=== PATIENT | female | born 1990 | race Caucasian/White ===

== ENCOUNTER 2017-04-19 09:13 | Emergency (ER) | payer MEDICAID ==
--- NOTE | 2017-04-19 09:56 | UC ---
Lower Extremity/Ankle HPI - HPI Summary HPI Summary: Left knee lateral lump/swelling for the past two months which is getting larger. It hurts more to use the knee like after a day of long walking. No prior injury or surgery. - History of Current Complaint Stated Complaint: LEFT KNEE COMPLAINT Time Seen by Provider: 04/19/17 09:44 Hx Obtained From: Patient Hx Last Menstrual Period: "I don't even remeber it ... PCOS" ?: No Onset/Duration: Gradual Onset, Lasting Weeks Severity Initially: Mild Severity Currently: Moderate - currently there is no pain. there was more pain yesterday after more walking. Aggravating Factor(s): Standing, Ambulation Alleviating Factor(s): Rest Able to Bear Weight: Yes - Risk Factors Gout Risk Factors: Negative - Allergies/Home Medications Allergies/Adverse Reactions: Allergies Allergy/AdvReac Type Severity Reaction Status Date / Time Cats Allergy Hives or Uncoded 04/19/17 09:53 Difficulty Breathing Home Medications: Home Medications Acetaminophen TAB* [Tylenol TAB*] 650 mg PO Q4H PRN 04/19/17 [History Confirmed 04/19/17] Ibuprofen TAB* [Advil TAB*] 400 mg PO Q6H PRN 04/19/17 [History Confirmed ] PMH/Surg Hx/FS Hx/Imm Hx Previously Healthy: No - prior aneurysm. - Surgical History Surgical History: Yes Surgery Procedure, Year, and Place: aneurysm repair. - Family History Known Family History: Positive: None - Social History Occupation: Disabled Alcohol Use: Rare Substance Use Type: None Smoking Status (MU): Never Smoked Tobacco - Immunization History Most Recent Influenza Vaccination: Not the Season Review of Systems Musculoskeletal: Arthralgia All Other Systems Reviewed And Are Negative: Yes Physical Exam Triage Information Reviewed: Yes Appearance: Well-Appearing, No Pain Distress, Well-Nourished Vital Signs Reviewed: Yes Eye Exam: Normal ENT Exam: Normal Dental Exam: Normal Neck exam: Normal Neck: Positive: No Lymphadenopathy Respiratory Exam: Normal Cardiovascular: Positive: Brisk Capillary Refill. Negative: Delayed Capillary Refill Abdominal Exam: Normal Musculoskeletal Exam: Other - left knee lateral 1/2 dollar sized discrete soft mass just over the fibula head. No redness. no induration. ROM full. the mass is somewhat mobile but it is tender. Musculoskeletal: Positive: ROM Intact Neurological Exam: Normal Psychological Exam: Normal Skin Exam: Normal Procedures - Splinting Pre-Made Type: marni wrap left knee Pre-Proc Neuro Vasc Exam: normal Post-Proc Neuro Vasc Exam: normal Lower Extremity Course/Dx - Course Course Of Treatment: soft tissue mass versus cyst involving the synovium. X ray obtained to rule out stacey mass or involvement. We discussed close f/u with orthopedics for possible MRI and or surgery. - Differential Dx/Diagnosis Differential Diagnosis/HQI/PQRI: Arthritis, Bursitis, Cellulitis, Compartment Syndrome, Contusion, Foreign Body, Fracture (Closed), Fracture (Open), Osteomyelitis, Puncture Wound, Septic Arthritis, Subungual Hematoma, Sprain, Tendonitis, Tenosynovitis Provider Diagnoses: left knee mass versus cyst. left knee pain with use. Discharge - Discharge Plan Condition: Good Disposition: HOME Patient Education Materials: Knee Pain (ED), Soft Tissue Mass (ED) Referrals: Non Staff,Doctor [Primary Care Provider] - Lavelle Canchola MD [Medical Doctor] - 1 Day
[2017-04-19 10:08] VITALS: BP 132/69
--- NOTE | 2017-04-19 10:36 | RAD ---
Indication: Left knee swelling. 2 views of left knee demonstrates no fracture. No other bone or joint abnormality is identified. IMPRESSION: No fracture of the left knee is noted.
== END 2017-04-19 10:51 | disposition home or self-care (01) ==
LOC: UCCORT 09:13
DX: R22.42 Localized swelling, mass and lump, left lower limb (principal); M25.562 Pain in left knee; Z32.02 Encounter for pregnancy test, result negative
CPT/HCPCS: 84702; 99211; G0463

== ENCOUNTER 2019-05-23 11:05 | Emergency (ER) | payer OTHER ==
[2019-05-23 11:39] VITALS: BP 127/69
--- NOTE | 2019-05-23 11:54 | UC ---
Skin Complaint HPI - HPI Summary HPI Summary: 28 yo female with rash on both arms and left ankle x 1 month pruritic states she has sensitive skin started out as dry patches - History of Current Complaint Chief Complaint: UCSkin Time Seen by Provider: 05/23/19 11:40 Stated Complaint: LEFT ANKLE ARM SKIN Hx Obtained From: Patient Hx Last Menstrual Period: PCOS, NO PERIOD IN OVER A YEAR Onset/Duration: Gradual Onset, Lasting Weeks Timing: Constant Onset Severity: Mild Current Severity: Mild Pain Intensity: 3 Location: Discrete Character: Pruritus, Redness Aggravating Factor(s): Touch - Allergy/Home Medications Allergies/Adverse Reactions: Allergies Allergy/AdvReac Type Severity Reaction Status Date / Time Cats Allergy Hives or Uncoded 04/04/19 16:31 Difficulty Breathing PMH/Surg Hx/FS Hx/Imm Hx Previously Healthy: Yes - Surgical History Surgical History: Yes Surgery Procedure, Year, and Place: aneurysm repair. (NO CLIPS- USED MEDICAL [facility]EMENT). TBI @ 16 - Family History Known Family History: Positive: None - Social History Alcohol Use: Rare Substance Use Type: None Smoking Status (MU): Never Smoked Tobacco - Immunization History Most Recent Influenza Vaccination: Not the Season Review of Systems All Other Systems Reviewed And Are Negative: Yes Constitutional: Positive: Negative Skin: Positive: Rash Eyes: Positive: Negative ENT: Positive: Negative Respiratory: Positive: Negative Cardiovascular: Positive: Negative Gastrointestinal: Positive: Negative Genitourinary: Positive: Negative Motor: Positive: Negative Neurovascular: Positive: Negative Musculoskeletal: Positive: Negative Neurological: Positive: Negative Psychological: Positive: Negative Physical Exam Triage Information Reviewed: Yes Appearance: Well-Appearing, No Pain Distress, Well-Nourished Vital Signs: Initial Vital Signs Temp 99 F 05/23/19 11:31 Pulse 74 05/23/19 11:31 Resp 16 05/23/19 11:31 BP 127/69 05/23/19 11:31 Pulse Ox 98 05/23/19 11:31 Vital Signs Reviewed: Yes Eyes: Positive: Conjunctiva Clear ENT: Positive: Hearing grossly normal. Negative: Nasal congestion, Nasal drainage, Tonsillar swelling, Tonsillar exudate, Hoarse voice Dental Exam: Normal Neck: Positive: Supple, Nontender, No Lymphadenopathy Respiratory: Positive: Lungs clear, Normal breath sounds, No respiratory distress Cardiovascular: Positive: RRR, No Murmur, Pulses Normal Musculoskeletal: Positive: ROM Intact, No Edema Neurological: Positive: Alert Psychological Exam: Normal Skin Exam: Other - see image Images Front/Back of Body, Lg ([place]): 1 - red/sligh scale patch 2 - red/raise 3 - red/raised thickened Course/Dx - Diagnoses Provider Diagnosis: Eczema Discharge ED - Sign-Out/Discharge Documenting (check all that apply): Patient Departure All imaging exams completed and their final reports reviewed: No Studies - Discharge Plan Condition: Stable Disposition: HOME Prescriptions: Triamcinolone 0.5% CREAM(NF) [Triamcinolone 0.5% CREAM*] 1 applic TOPICAL QID # 60 tube Patient Education Materials: Eczema (ED) Referrals: Marian Stokes [Medical Doctor] - 2 Weeks (if not better has a [place] office) - Billing Disposition and Condition Condition: STABLE Disposition: Home
== END 2019-05-23 12:14 | disposition home or self-care (01) ==
LOC: UCCORT 11:05
DX: L30.9 Dermatitis, unspecified (principal)
CPT/HCPCS: 99212; G0463